=== PATIENT | male | born 1955 | race Caucasian/White ===

== ENCOUNTER → 2023-12-25 | Outpatient (CLI) | payer OTHER ==
[2023-12-25 12:37] LABS: African American GFR (CKD) 57 (>60 ml/min/1.73 sqM); Blood Urea Nitrogen 32 mg/dL (9-20); Non-African American GFR(CKD) 49 (>60 ml/min/1.73 sqM)
--- NOTE | 2023-12-25 13:46 | CT ---
EXAMINATION: CT ABDOMEN AND PELVIS WITH IV CONTRAST DATE OF EXAMINATION: 12/25/2023. COMPARISON: None available. INDICATION: Left lower quadrant pain. PROCEDURE: Axial CT of the abdomen and pelvis was performed with contrast and sagittal and coronal reformatted images were performed. CT dose lowering techniques were used, to include: automated expos ure control, adjustment for patient size, and/or use of iterative reconstruction. 80 mL of Isovue 300 was given intravenously. FINDINGS: LOWER CHEST : There appears to be linear band of opacity right lung base with a possible adjacent mcdonough ture likely related to prior surgical changes. There is no pleural or cardial effusions. ABDOMEN: Liver and Biliary system: There is a hypoattenuating mass within the right lobe of the liver that me asures up to approximately 2.1 cm in diameter which is indeterminate based on this examination. This is not clearly represent a hemangioma and an MRI is recommended for further evaluation.. Adrenal glands: Normal. Kidneys and ureters: Normal. Spleen: Normal. Pancreas: Normal. Gallbladder: Normal. Lymph nodes, Peritoneum and mesentery: There is no mesenteric or retroperitoneal lymphadenopathy. Gastrointestinal tract: There are no dilated loops of bowel or free intraperitoneal air. There is mild to moderate descending colonic and sigmoid colonic diverticulosis with mild diverticulitis invo lving the distal descending and sigmoid colon proximally. No perforation or abscess is seen. Aorta/IVC: There is moderate vascular dilatation throughout the abdominal aorta without evidence of aneurysmal dilation or dissection. IVC filter is present. Abdominal wall: Right lower quadrant probable incisional hernia as it may have a prior colostomy in this region. This contains small bowel.. PELVIS: Fluid: There is no free fluid in the pelvis. Lymph Nodes: There is no pelvic or inguinal lymphadenopathy.. Urinary bladder: Normal. BONES: There is some scattered degenerative changes seen within the lower lumbar spine. Mild candace theodore of the superior endplate of L5 and L4 is likely chronic.. ADDITIONAL SIGNIFICANT FINDINGS: None. IMPRESSION: 1. Mild diverticulitis as above. 2. Right lower quadrant abdominal wall hernia containing small bowel may be a prior incisional hernia from previous ostomy. Clinical correlation is recommended. 3. Indeterminate lesion within the right lobe of liver. An MRI of the liver is recommended for furthe r evaluation on a nonemergent basis.
== END | disposition home or self-care (01) ==
LOC: RADCTMAIN 11:29
PROVIDERS: ATTEND Family Medicine
DX: K43.9 Ventral hernia without obstruction or gangrene (principal); K57.92 Diverticulitis of intestine, part unspecified, without perforation or abscess without bleeding
CPT/HCPCS: 82565; 84520; 74177; 36415; Q9967

== ENCOUNTER → 2024-01-09 | Outpatient (CLI) | payer OTHER ==
--- NOTE | 2024-01-14 14:35 | MR ---
EXAMINATION TYPE: MR abdomen wo/w con DATE OF EXAM: 01/09/2024 7:15 AM CLINICAL INDICATION:Male, 68 years old with history of R93.2 ABNORMAL FINDINGS ON DX IMAGING OF LIVER AND; PHH, Abnormal findings on dx imaging of liver and biliary tract COMPARISON: CT scan abdomen from 12/25/2023. TECHNIQUE: Multiplanar multi-sequence imaging was performed without contrast. Post contrast imaging was performed. Post IV contrast subtraction images were also submitted for review. IV Contrast: 11.5 cc Gadobutrol FINDINGS: LOWER CHEST: No gross irregularity. ABDOMEN Liver: No evidence for hepatic steatosis or cirrhosis.r high T2 signal lesion of concern in the right hepatic lobe measuring approximately 25 x 23 x 21 mm. Additional small lesion which is high T2 signa l measuring 9 mm to the right hepatic lobe dome. Both of these lesions on postcontrast imaging demons trates progressive nodular discontinuous enhancement. Gallbladder and Bile ducts: Cystic structure thought to represent the gallbladder is present. There i s dilation of the extrahepatic biliary system measuring 15 mm in diameter and the common hepatic duct and 11 mm in diameter of the common bile duct. No choledocholithiasis visualized. Pancreas: No ductal dilation. No evidence for solid mass. Cystic structure near the pancreatic head w ithout abnormal postcontrast enhancement measuring 7 mm. Spleen: Normal for size. Adrenal glands: Unremarkable. Kidneys: No evidence for obstructive uropathy. No suspicious renal masses. Bilateral simple appearing high T2 renal cysts. No abnormal postcontrast enhancement. Stomach and Bowel: No evidence for bowel wall thickening or evidence for obstruction. Retroperitoneum/Peritoneum: No evidence of pneumoperitoneum or free fluid. Vasculature: No aortic aneurysm. IVC filter is in place with susceptibility artifact. Musculoskeletal: The osseous structures appear intact. Multilevel degeneration changes of the spine. Lymph Nodes: No gross evidence for lymphadenopathy. Abdominal wall: Unremarkable. IMPRESSION: 1. Right hepatic lobe lesions most compatible with hepatic hemangiomas. No suspicious liver observat ions. 2. Dilation of the predominantly the extra hepatic biliary system without evidence for choledocholit hiasis or biliary stricture. 3. Pancreatic head cystic structure measuring 7 mm posterior positioning sidebranch intraductal vishal llary mucinous neoplasm versus other cystic neoplasm versus sequela prior pancreatitis. Consider foll ow-up imaging one year to ensure stability with MRI MRCP with IV contrast. No evidence for acute abdo sandie process. 4. Simple appearing renal cysts.
== END | disposition home or self-care (01) ==
LOC: RADMRIMAIN 06:00
PROVIDERS: ATTEND Family Medicine
DX: N28.1 Cyst of kidney, acquired (principal); K76.9 Liver disease, unspecified; K86.2 Cyst of pancreas; R93.2 Abnormal findings on diagnostic imaging of liver and biliary tract
CPT/HCPCS: 74183; A9585